=== PATIENT | female | born 1990 | race Caucasian/White ===

== ENCOUNTER 2016-12-17 05:13 | Emergency (ER) | payer OTHER ==
[~2016-12-17] VITALS: Ht 175.3 cm; Wt 84.4 kg
[2016-12-17 05:18] VITALS: BP 136/98; PULSE 110; RESP 14; TEMP 98.3; O2SAT 98
[2016-12-17] MEDS ORDERED: AMIT10TA6 PO (05:22)
[2016-12-17] MEDS ORDERED: PROCHLORPERAZINE INJ 10 MG/2 ML VIAL IM ONE (05:45)
[2016-12-17] MEDS ORDERED: KETOROLAC TROMETHAMINE 60 MG/2 ML (IM) VIAL IM ONE (05:45)
[2016-12-17] MEDS ORDERED: predniSONE 50 MG TAB PO ONE (05:45)
[2016-12-17] MEDS ORDERED: MORPHINE SULFATE 4 MG/ML INJ IM ONE (05:45)
--- NOTE | 2016-12-17 05:50 | PD ---
HPI Chief Complaint: Oral / Dental Pain or Problem Time Seen by Provider: 05:27 Travel History International Travel<30 days: No Contact w/Intl Traveler<30days: No Traveled to known affect area: No History of Present Illness HPI The patient is a 26-year-old female who presents emergency department for left jaw pain. The patient has a history of TMJ and possibly trigeminal neuralgia, has been followed by her dentist who resides in [place]. The patient states she recently had a root canal on the left lower aspect several months ago , now is experiencing pain along the left TMJ and the left lower aspect of her jaw. There is one tooth that is just anterior to the left posterior molar that is sensitive to palpation. The patient states she received relief with a prior course of prednisone several months ago for her TMJ and is requesting prednisone. The patient states she has an appointment with her dentist in [place] on . The pain is located left TMJ, radiates down to the left jaw, she denies any associated fever, chills, or sweats. She denies any significant edema along the left lower gumline. PFSH Past Medical History Medical History: Denies Significant Hx Diminished Hearing: No Tetanus Vaccination: Unknown Influenza Vaccination: No ?: Not LMP: 5-15-17 Past Surgical History Oral Surgery: Yes (root canal) Social History Alcohol Use: Yes (rarely) Tobacco Use: No Substance Use: No Allergies-Medications (Allergen,Severity, Reaction): Coded Allergies: No Known Allergies (Unverified , 12/17/16) Reported Meds & Prescriptions Reported Meds & Active Scripts Active Reported Amitriptyline (Amitriptyline HCl) 10 Mg Tab 40 Mg PO HS Review of Systems Except as stated in HPI: all other systems reviewed are Neg General / Constitutional: No: Fever HENT: Positive: Dental Difficulties, Other (as noted in the history of present illness) Gastrointestinal: No: Nausea, Vomiting Skin: No Rash Physical Exam Narrative GENERAL: Awake, alert, very pleasant 26-year-old female who appears her stated age and is in no acute respiratory distress. SKIN: Focused skin assessment warm/dry. HEAD: Atraumatic. Normocephalic. EYES: Pupils equal and round. No scleral icterus. No injection or drainage. ENT: No nasal bleeding or discharge. Mucous membranes pink and moist. The patient has tenderness over tooth #18, however, there is no edema or swelling over the gumline to suggest abscess. The patient is tender to palpation over the left TMJ. The left EAC is clear, left tympanic membranes is translucent. NECK: Trachea midline. No JVD. MUSCULOSKELETAL: No obvious deformities. No clubbing. No cyanosis. No edema. NEUROLOGICAL: Awake and alert. No obvious cranial nerve deficits. Motor grossly within normal limits. Normal speech. PSYCHIATRIC: Appropriate mood and affect; insight and judgment normal. Data Data Last Documented VS Vital Signs Date Time Temp Pulse Resp B/P Pulse Ox O2 Delivery O2 Flow Rate FiO2 12/17/16 05:18 98.3 110 14 136/98 98 Orders Ketorolac Inj (Toradol Inj) (12/17/16 05:45) Morphine Inj (Morphine Inj) (12/17/16 05:45) Prochlorperazine Inj (Compazine Inj) (12/17/16 05:45) Prednisone (Deltasone) (12/17/16 05:45) Non-Formulary Drug (12/17/16 06:00) MDM Medical Decision Making Medical Screen Exam Complete: Yes Emergency Medical Condition: Yes Medical Record Reviewed: Yes Differential Diagnosis Differential diagnosis includes pericarditis, odontalgia, TMJ, trigeminal neuralgia, otitis media, otitis externa, shingles. Narrative Course I had a discussion with the patient regarding treatment options, patient would prefer to go back on prednisone. I will place the patient on Peridex swish and spit until she is evaluated by her dentist as well as prednisone. The patient received Toradol, morphine, and Phenergan IM in the emergency department for pain relief. The patient does have a ride home. She is advised to follow-up with her dentist as scheduled. Return if symptoms worsen or progress. Diagnosis Primary Impression: TMJ tenderness Additional Impression: Odontalgia Patient Instructions: Narcotic given in the ED, General Instructions Additional Instructions: Follow-up with your dentist as scheduled. Medications as directed. Return if symptoms worsen or progress. Diet as tolerated. Med/Other Pt SpecificInfo: Prescription(s) given Scripts Chlorhexidine Gluconate (Mouth) Liq (Peridex Liq)0.12% Soln15 Ml SWISH-SPIT BID #473 ML Ref 0 Prov:Ze Lopez MD 12/17/16 Prednisone (Deltasone)20 Mg Tab40 Mg PO DAILY 4 Days Ref 0 Prov:Ze Lopez MD 12/17/16 Disposition: 01 DISCHARGE HOME Condition: Stable Ze Lopez MD December 17, 2016 05:50
[2016-12-17] MEDS ORDERED: PRED-503 PO (05:57)
[2016-12-17] MEDS ORDERED: PERI0.126 SWISH-SPIT (05:57)
[2016-12-17] MEDS ORDERED: NON-FORMULARY DRUG ONE (06:00)
[2016-12-17 06:25] VITALS: RESP 18
[2016-12-17 06:27] VITALS: BP 135/85; TEMP 98
== END 2016-12-17 06:35 | disposition home or self-care (01) ==
LOC: PHED 05:13
DX: R68.84 Jaw pain (principal); K08.89 Other specified disorders of teeth and supporting structures
CPT/HCPCS: 96372; 99284; J1885; J2270; J7512

== ENCOUNTER 2017-08-09 10:53 | Emergency (ER) | payer OTHER | END 2017-08-09 11:30 | disposition home or self-care (01) | LOC: PHED 10:53 | DX: L02.01 Cutaneous abscess of face (principal) | CPT/HCPCS: 99283 ==